=== PATIENT | male | born 2000 ===

== ENCOUNTER 2020-07-05 13:35 | Outpatient (CLI) | payer MEDICAID ==
[~2020-07-05] VITALS: Ht 180.3 cm; Wt 77.6 kg
[2020-07-05 13:44] VITALS: BP 136/70
--- NOTE | 2020-07-05 20:29 | Consultation ---
DATE OF CONSULTATION: 07/05/2020 CHIEF COMPLAINT: Abdominal pain and bloating. HISTORY OF PRESENT ILLNESS: This is a 20-year-old male with history of possible IBS. He has been complaining of abdominal pain for about 2 to 3 years, sometimes diarrhea, sometimes normal bowel. He states that he is significantly get bloated especially after eating. He states abdominal distention that goes away when he has a bowel movement and feels better after bowel movement. He has been seen by multiple GI doctors. According to him, he never had an endoscopy and colonoscopy, but he was diagnosed with possible IBS based on symptoms and he was given some simethicone tablets. PAST MEDICAL HISTORY: IBS. PAST SURGICAL HISTORY: None. MEDICATIONS: None. FAMILY HISTORY: Noncontributory. SOCIAL HISTORY: The patient denies any tobacco, alcohol, or IV drug use. ALLERGIES: No known allergies. REVIEW OF SYSTEMS: Positive for abdominal pain, diarrhea, and bloating. PHYSICAL EXAMINATION: VITAL SIGNS: Temperature 96.7, pulse is 80, respirations 20, blood pressure is 132/70. HEENT: Normocephalic and atraumatic. Sclerae anicteric. NECK: Supple. No evidence of obvious lymphadenopathy. CARDIOVASCULAR: Regular rate and rhythm. Plus S1, S2. LUNGS: Clear to auscultation bilaterally. ABDOMEN: Positive bowel sounds. Soft and nontender. No rebound. No guarding. No peritoneal sign. EXTREMITIES: No cyanosis, no clubbing, no edema. ASSESSMENT AND PLAN: This is a 20-year-old male with abdominal pain, bloating suspicious for SIBO versus IBS or versus combination of above. No alarming sign or symptoms. PLAN: Treat with Xifaxan for 14 days. I ordered IBS blood work. Recommend Align after the IBS treatment with Xifaxan. Return to clinic after above. Jerad Olguin M.D. DR: Pia JOB#: [id number] CC:
== END 2020-07-05 14:56 | disposition home or self-care (01) ==
LOC: PAN 13:35
DX: R10.9 Unspecified abdominal pain (principal); R14.0 Abdominal distension (gaseous); R19.7 Diarrhea, unspecified
CPT/HCPCS: 99203